=== PATIENT | female | born 1960 | race Caucasian/White ===

== ENCOUNTER → 2016-10-06 | Outpatient (CLI) | payer OTHER ==
--- NOTE | 2016-10-06 10:59 | MA ---
Screening Digital Mammogram With Tomosynthesis Clinical Indications: Routine screening. Personal history of left breast cancer. Technique: Standard digital cephalocaudal and tomosynthesis mediolateral oblique projections are obt ained. An additional cc digital view is performed of the left breast. The digital images were process ed by the [employer] computer aided detection system. Comparison: September 2015, September 2014, September 2013 and September 2012 Breast density: B; There are scattered fibroglandular densities. Findings: CAD was reviewed. No suspicious findings are identified. There are stable post therapeutic changes in the right breast. Impression: Benign mammogram. BI-RADS 2.. Recommendation: Routine screening is recommended in one year. [facility] will send a result letter to the patient. Negative mammography should not preclude additional workup of a clinically suspicious finding. The patient's information is entered into a reminder system with a target due date for her next mammo gram.
== END ==
LOC: FIMAGING 10:12
DX: Z12.31 Encounter for screening mammogram for malignant neoplasm of breast (principal); Z80.3 Family history of malignant neoplasm of breast
CPT/HCPCS: G0202

== ENCOUNTER → 2017-06-16 | Outpatient (CLI) | payer OTHER ==
[~2017-06-16] MED LIST: GADOBUTROL 10 ML VIAL IVP ONE
== END ==
LOC: FIMAGING 18:48
PROVIDERS: ATTEND Family Medicine
DX: R51 Headache (principal); Z85.3 Personal history of malignant neoplasm of breast
CPT/HCPCS: A9585

== ENCOUNTER 2017-07-12 09:48 | Inpatient (IN) | payer OTHER ==
[~2017-07-12 09:48] MED LIST changes: -AVITENE POWDER 1 GM JAR TP ONE; +CEFUROXIME 1,500 MG in NS 50 ML IV ONE; -DEXAMETHASONE 4 MG/ML VIAL ONE; -HYDROmorphONE/DILAUDID 2 MG/ML INJ ONE; -LIDOCAINE 2% 100 MG/5 ML SYR ONE; -ONDANSETRON 4 MG/2 ML VIAL ONE; -PROMETHAZINE HCL 25 MG/ML INJ ONE; -PROPOFOL 200 MG/20 ML VIAL ONE; -PROPOFOL/EMULSION 500 MG/50 ML BOTTLE IV ONE; -REMIFENTANIL HCL 1 MG VIAL ONE; -ROCURONIUM 50 MG/5 ML VIAL ONE; -SCOPOLAMINE HYDROBROMIDE 1 MG/3 DAYS PATCH TD ONE; -epHEDrine SULFATE 10 MG/ML SYR ONE; -fentaNYL 100 MCG/2 ML INJ ONE
[2017-07-12] MEDS ORDERED: LR 1,000 ML IV ONE (10:14)
[2017-07-12] MEDS ORDERED: LIDOCAINE 1% 2 ML INJ ID PRN (10:14)
[2017-07-12] MEDS ORDERED: LIDOCAINE 1% 2 ML INJ ONE (10:16)
[2017-07-12] MEDS ORDERED: GADOBUTROL 10 ML VIAL IVP ONE (10:24)
[2017-07-12] MEDS ORDERED: BACITRACIN ZINC 14.2 GM OINTTUBE TP ONE (10:56)
[2017-07-12] MEDS ORDERED: THROMBIN (BOVINE) 20,000 UNIT VIAL TP ONE (10:56)
[2017-07-12] MEDS ORDERED: BUPIVACAINE 0.25% 30 ML SDV ONE (10:56)
[2017-07-12] MEDS ORDERED: HYDROGEN PEROXIDE 236 ML BOTTLE TP ONE (10:57)
[2017-07-12] MEDS ORDERED: GENTAMICIN SULFATE 80 MG/2 ML VIAL ONE (10:57)
[2017-07-12] MEDS ORDERED: AVITENE POWDER 1 GM JAR TP ONE (10:57)
[2017-07-12] MEDS ORDERED: POVIDONE-IODINE 30 GM OINTTUBE TP ONE (10:57)
--- NOTE | 2017-07-12 12:24 | PDHPUP ---
History & Physical Update H&P update statement: This history and physical update is based on an assessment of the patient which was completed after admission or registration (within 24 hours), but prior to the surgery/procedure. H&P update: H&P reviewed & patient examined, no change in patient's condition since H&P completed
[2017-07-12] MEDS ORDERED: HYDROmorphONE/DILAUDID 1 MG/ML INJ IVP PRN (14:05)
[2017-07-12] MEDS ORDERED: HYDROCODONE/APAP 5/325 TAB PO PRN (14:05)
[2017-07-12] MEDS ORDERED: ONDANSETRON 4 MG/2 ML VIAL IVP PRN ×2 (14:05→15:13)
[2017-07-12] MEDS ORDERED: PROMETHAZINE HCL 25 MG/ML INJ IVP PRN ×2 (14:05→15:13)
[2017-07-12] MEDS ORDERED: OXYCODONE/APAP 5/325 TAB PO PRN (14:05)
[2017-07-12] MEDS ORDERED: fentaNYL 100 MCG/2 ML INJ IVP PRN (14:05)
[2017-07-12] MEDS ORDERED: NALOXONE HCL 0.4 MG/ML INJ IVP PRN (14:05)
[2017-07-12] MEDS ORDERED: DEXAMETHASONE 4 MG/ML VIAL IVP PRN (14:05)
[2017-07-12] MEDS ORDERED: MEPERIDINE 25 MG/ML SYR IVP PRN (14:05)
[2017-07-12] MEDS ORDERED: ACETAMINOPHEN 500 MG TAB PO PRN (14:05)
--- NOTE | 2017-07-12 14:07 | POSTANESTH ---
Post Anesthetic Evaluation Cardiovascular Status: Normal, Stable, Similar to Pre-Op Cond Respiratory Status: Normal, Stable, Similar to Pre-op Cond. Level of Consciousness/Mental Status: Can Participate in Eval, Mildly Sleepy, Arousable Pain Control: Adequate, Prn Tx Ordered Nausea/Vomiting Control: Inadeq, Add Tx Reqired Complications Possibly Related to Anesthesia: None Noted
[2017-07-12] MEDS ORDERED: MAGNESIUM HYDROXIDE 30 ML UDCUP PO PRN (15:13)
[2017-07-12] MEDS ORDERED: LACTULOSE 20 GM/30 ML UDCUP PO PRN (15:13)
[2017-07-12] MEDS ORDERED: niCARdipine/NACL 200 ML IV PRN (15:13)
[2017-07-12] MEDS ORDERED: BISACODYL 10 MG SUPP PR PRN (15:13)
[2017-07-12] MEDS ORDERED: POLYETHYLENE GLYCOL 3350 17 GM PKT PO PRN (15:13)
[2017-07-12] MEDS ORDERED: oxyCODONE IR 5 MG TAB PO PRN (15:17)
--- NOTE | 2017-07-12 15:21 | POSTOPPROG ---
Post Op Note Date of Operation: 07/12/17 Surgeon: Elba Turner Air Brake Mechanic: Krissy Parada PA-C Anesthesia: GET(General Endotracheal) Pre-op Diagnosis: Meningioma Post-op Diagnosis: Meningioma Procedure: Left craniotomy for resection of brain mass Inf/Abcess present in the surg proc area at time of surgery?: No Depth: Deep Incisional (Fascial) EBL: 50-100 Drains: Keith Castelan Specimen(s): Left parietal brain mass sent to pathology Plan Plan: 56 yo female s/p left parietal craniotomy for resection of meningioma - neuro checks - pain control - BYRON drain subgaleal - MRI brain in am - PT/OT - Keppra x 7 days - Maintain SBP < 140 Exam Awake. Alert. PERRL Speech fluent Muscle strength full at 5/5 Incision with dressing
--- NOTE | 2017-07-12 15:21 | POSTOPPROG ---
Post Op Note Date of Operation: 07/12/17 Surgeon: Elba Turner School Bus Driver/Mechanic: Krissy Parada PA-C Anesthesia: GET(General Endotracheal) Pre-op Diagnosis: Meningioma Post-op Diagnosis: Meningioma Procedure: Left craniotomy for resection of brain mass Inf/Abcess present in the surg proc area at time of surgery?: No Depth: Deep Incisional (Fascial) EBL: 50-100 Drains: Keith Castelan Specimen(s): Left parietal brain mass sent to pathology Plan Plan: 56 yo female s/p left parietal craniotomy for resection of meningioma - neuro checks - pain control - BYRON drain subgaleal - MRI brain in am - PT/OT - Keppra x 7 days - Maintain SBP < 140 Exam Awake. Alert. PERRL Speech fluent Muscle strength full at 5/5 Incision with dressing
[2017-07-12] MEDS ORDERED: SCOPOLAMINE HYDROBROMIDE 1 MG/3 DAYS PATCH TD ONE (15:45)
--- NOTE | 2017-07-12 17:30 | GOP ---
[f rep st] OPERATIVE REPORT DATE OF OPERATION: SURGEON: Elba Turner DO NEUROSURGEON: Elba Turner D.O. PACKING AND WRAPPING SUPERVISOR: JAGJIT Cornejo. PREOPERATIVE DIAGNOSIS: Left parietal meningeal lesion. POSTOPERATIVE DIAGNOSIS: Grade 1 meningioma. PROCEDURE PERFORMED: Left stereotactic parietal craniotomy resection of meningioma. FINDINGS: SPECIMENS: To Pathology. Prelim path is grade 1 meningioma. ESTIMATED BLOOD LOSS: 50 mL. INDICATIONS: This is a 56-year-old female with a history of breast cancer who was found to have a le ft parietal meningeal lesion appearing to be meningioma. She elected to move forward with craniotomy and removal. DESCRIPTION OF PROCEDURE: She was identified, consented. Sites were marked. Brought to the operating room, anesthetized under general endotracheal tube anesthesia. Head was placed in a Govea head ho lder. 80 pounds of pressure. The stereotactic arm was affixed, and she was registered to 1.8 mm of ac curacy. This was verified. The preoperatively planned incision was marked in a linear fashion in the left parietal region. Her hair was clipped with the OR clippers. She was prepped and draped in the [facility] sterile fashion. Incision was anesthetized with 0.5% Marcaine with epinephrine. Incision was made with a 10 blade. Hemostasis was obtained with bipolar cautery and Rashel clips. The periosteal elevator was used to elevate the periosteum. Cerebellar retractors brought in. Stereotacti ekke we marked the craniotomy flap to surround the lesion and based upon the preoperative plan and u sed 14 mm bur holes superiorly and inferiorly. This was connected with a B1 with footplate. The denise hole edges were waxed. We then used the wire pass to create holes in the cranium for dural tack-up st itches. Dural tack-up stitches were created circumferentially with 4-0 Nurolon. We then used the stereotaxis to identify the margins of the dural tail and the dura was tented up wit h a 4-0 Nurolon, opened with a 15 blade, and this was extended with a Beckie under the 15 blade unti l we were circumferentially around the lesion. As we began to lift the meninges up, the tumor came ou t in a single piece with a couple of small feeders on the deep side which were coagulated and cut. Th ere was no disruption of the brain tissue. We then stereotactically verified that we had completely r esected the entire enhancing dural tail. We then copiously irrigated with gentamicin-infused saline. Hemostasis on the brain was obtained with Gelfoam and Avitene, and then we gently laid a single layer of Surgicel across this. We used Synthes sewable dural replacement and 4-0 Nurolon to replace the du ra that was resected and sewn watertight. We then copiously irrigated with gentamicin-infused saline, replaced the bone flap with Synthes titan ium plates and 4 mm screws. We then copiously irrigated again with gentamicin-infused saline, trocar to drain out superiorly and posteriorly placed in the subgaleal space. Closed the temporalis fascia w ith 2-0 Vicryl pop-offs. The galea was closed with 2-0 Vicryl pop-offs. The skin was closed with stap les. The drain was sutured and with a 2-0 Vicryl pop-off placed to bulb suction. The incision was michelle ssed with bacitracin and Telfa. The patient was removed from the Govea head esthetician and all neuro m onitoring including motor and sensories were stable throughout the entire case. There were no complic ations. FLUIDS: 2 L crystalloid. URINE OUTPUT: 70 mL. DRAINS: 1 BYRON in the subgaleal space to bulb suction. COMPLICATIONS: None. /[id number]/MODL
--- NOTE | 2017-07-12 17:30 | GOP ---
[f rep st] OPERATIVE REPORT DATE OF OPERATION: SURGEON: Elba Turner DO NEUROSURGEON: Elba Turner D.O. METAL BENDING MACHINE OPERATOR: JAGJIT Cornejo. PREOPERATIVE DIAGNOSIS: Left parietal meningeal lesion. POSTOPERATIVE DIAGNOSIS: Grade 1 meningioma. PROCEDURE PERFORMED: Left stereotactic parietal craniotomy resection of meningioma. FINDINGS: SPECIMENS: To Pathology. Prelim path is grade 1 meningioma. ESTIMATED BLOOD LOSS: 50 mL. INDICATIONS: This is a 56-year-old female with a history of breast cancer who was found to have a le ft parietal meningeal lesion appearing to be meningioma. She elected to move forward with craniotomy and removal. DESCRIPTION OF PROCEDURE: She was identified, consented. Sites were marked. Brought to the operating room, anesthetized under general endotracheal tube anesthesia. Head was placed in a Govea head ho lder. 80 pounds of pressure. The stereotactic arm was affixed, and she was registered to 1.8 mm of ac curacy. This was verified. The preoperatively planned incision was marked in a linear fashion in the left parietal region. Her hair was clipped with the OR clippers. She was prepped and draped in the [facility] sterile fashion. Incision was anesthetized with 0.5% Marcaine with epinephrine. Incision was made with a 10 blade. Hemostasis was obtained with bipolar cautery and Rashel clips. The periosteal elevator was used to elevate the periosteum. Cerebellar retractors brought in. Stereotacti keke we marked the craniotomy flap to surround the lesion and based upon the preoperative plan and u sed 14 mm bur holes superiorly and inferiorly. This was connected with a B1 with footplate. The denise hole edges were waxed. We then used the wire pass to create holes in the cranium for dural tack-up st itches. Dural tack-up stitches were created circumferentially with 4-0 Nurolon. We then used the stereotaxis to identify the margins of the dural tail and the dura was tented up wit h a 4-0 Nurolon, opened with a 15 blade, and this was extended with a Beckie under the 15 blade unti l we were circumferentially around the lesion. As we began to lift the meninges up, the tumor came ou t in a single piece with a couple of small feeders on the deep side which were coagulated and cut. Th ere was no disruption of the brain tissue. We then stereotactically verified that we had completely r esected the entire enhancing dural tail. We then copiously irrigated with gentamicin-infused saline. Hemostasis on the brain was obtained with Gelfoam and Avitene, and then we gently laid a single layer of Surgicel across this. We used Synthes sewable dural replacement and 4-0 Nurolon to replace the du ra that was resected and sewn watertight. We then copiously irrigated with gentamicin-infused saline, replaced the bone flap with Synthes titan ium plates and 4 mm screws. We then copiously irrigated again with gentamicin-infused saline, trocar to drain out superiorly and posteriorly placed in the subgaleal space. Closed the temporalis fascia w ith 2-0 Vicryl pop-offs. The galea was closed with 2-0 Vicryl pop-offs. The skin was closed with stap les. The drain was sutured and with a 2-0 Vicryl pop-off placed to bulb suction. The incision was michelle ssed with bacitracin and Telfa. The patient was removed from the Govea head grease maker and all neuro m onitoring including motor and sensories were stable throughout the entire case. There were no complic ations. FLUIDS: 2 L crystalloid. URINE OUTPUT: 70 mL. DRAINS: 1 BYRON in the subgaleal space to bulb suction. COMPLICATIONS: None. /[id number]/MODL
--- NOTE | 2017-07-12 17:30 | GOP ---
[f rep st] OPERATIVE REPORT DATE OF OPERATION: SURGEON: Elba Turner DO NEUROSURGEON: Elba Turner D.O. OFFICE SPECIALIST: JAGJIT Cornejo. PREOPERATIVE DIAGNOSIS: Left parietal meningeal lesion. POSTOPERATIVE DIAGNOSIS: Grade 1 meningioma. PROCEDURE PERFORMED: Left stereotactic parietal craniotomy resection of meningioma. FINDINGS: SPECIMENS: To Pathology. Prelim path is grade 1 meningioma. ESTIMATED BLOOD LOSS: 50 mL. INDICATIONS: This is a 56-year-old female with a history of breast cancer who was found to have a le ft parietal meningeal lesion appearing to be meningioma. She elected to move forward with craniotomy and removal. DESCRIPTION OF PROCEDURE: She was identified, consented. Sites were marked. Brought to the operating room, anesthetized under general endotracheal tube anesthesia. Head was placed in a Govea head ho lder. 80 pounds of pressure. The stereotactic arm was affixed, and she was registered to 1.8 mm of ac curacy. This was verified. The preoperatively planned incision was marked in a linear fashion in the left parietal region. Her hair was clipped with the OR clippers. She was prepped and draped in the [facility] sterile fashion. Incision was anesthetized with 0.5% Marcaine with epinephrine. Incision was made with a 10 blade. Hemostasis was obtained with bipolar cautery and Rashel clips. The periosteal elevator was used to elevate the periosteum. Cerebellar retractors brought in. Stereotacti keke we marked the craniotomy flap to surround the lesion and based upon the preoperative plan and u sed 14 mm bur holes superiorly and inferiorly. This was connected with a B1 with footplate. The denise hole edges were waxed. We then used the wire pass to create holes in the cranium for dural tack-up st itches. Dural tack-up stitches were created circumferentially with 4-0 Nurolon. We then used the stereotaxis to identify the margins of the dural tail and the dura was tented up wit h a 4-0 Nurolon, opened with a 15 blade, and this was extended with a Beckie under the 15 blade unti l we were circumferentially around the lesion. As we began to lift the meninges up, the tumor came ou t in a single piece with a couple of small feeders on the deep side which were coagulated and cut. Th ere was no disruption of the brain tissue. We then stereotactically verified that we had completely r esected the entire enhancing dural tail. We then copiously irrigated with gentamicin-infused saline. Hemostasis on the brain was obtained with Gelfoam and Avitene, and then we gently laid a single layer of Surgicel across this. We used Synthes sewable dural replacement and 4-0 Nurolon to replace the du ra that was resected and sewn watertight. We then copiously irrigated with gentamicin-infused saline, replaced the bone flap with Synthes titan ium plates and 4 mm screws. We then copiously irrigated again with gentamicin-infused saline, trocar to drain out superiorly and posteriorly placed in the subgaleal space. Closed the temporalis fascia w ith 2-0 Vicryl pop-offs. The galea was closed with 2-0 Vicryl pop-offs. The skin was closed with stap les. The drain was sutured and with a 2-0 Vicryl pop-off placed to bulb suction. The incision was michelle ssed with bacitracin and Telfa. The patient was removed from the Govea correction officer head and all neuro m onitoring including motor and sensories were stable throughout the entire case. There were no complic ations. FLUIDS: 2 L crystalloid. URINE OUTPUT: 70 mL. DRAINS: 1 BYRON in the subgaleal space to bulb suction. COMPLICATIONS: None. /[id number]/MODL
[2017-07-12] MEDS: NS W/ 20 KCl/L 1,000 ML IV SCH (18:06)
[2017-07-12] MEDS: METOPROLOL TARTRATE 25 MG TAB PO SCH (19:41)
[2017-07-12] MEDS: SENNOSIDES/DOCUSATE SODIUM TAB PO SCH (19:41)
[2017-07-12] MEDS: ACETAMINOPHEN 325 MG TAB PO PRN (19:41)
[2017-07-12] MEDS: levETIRAcetam 500 MG TAB PO SCH (19:42)
[2017-07-12] MEDS: CEFUROXIME 1,500 MG in NS 50 ML IV SCH (20:38)
[2017-07-12] MEDS: HYDROCODONE/APAP 10/325 TAB PO PRN (22:15)
[2017-07-13] MEDS: NS W/ 20 KCl/L 1,000 ML IV SCH (03:10)
[2017-07-13] MEDS: ACETAMINOPHEN 325 MG TAB PO PRN ×2 (04:45→17:10)
[2017-07-13] MEDS: HYDROCODONE/APAP 10/325 TAB PO PRN (04:45)
[2017-07-13] MEDS: CEFUROXIME 1,500 MG in NS 50 ML IV SCH (04:46)
--- NOTE | 2017-07-13 08:11 | NEUSURGPN ---
Assessment/Plan: 56 yo female s/p left parietal craniotomy for resection of meningioma - POD#1 - neuro checks - pain control - BYRON drain subgaleal - continue - MRI brain w/wo pending this AM - PT/OT - Keppra x 7 days - Maintain SBP < 140 - Likely transfer to floor later today if doing well - Pt seen and d/w Dr Turner - Call NS with any issues Subjective: Pt resting in bedside chair, states she feels sleepy. Pain well managed. Eating breakfast. Objective: AAOx3 NAD VSS Face symmetric, no droop CN II-XII grossly intact Incision dressed cdi Motor 5/5 BUE/BLE +LT Urinary Catheter in Place: No - Physician Discussed Patient with : Yue Patient Seen by : Yue Neurosurgery Physical Exam - Vitals, I&O, Labs I and O 07/12/17 07/13/17 07/14/17 05:59 05:59 05:59 Intake Total 3970 Output Total 1810 Balance 2160 Weight 74.843 kg Intake: Oral (ml) 600 IV Intake (ml) 2200 IV Infused (ml) 1170 NS W/ 20 KCl/L 1,000 ml @ 1170 100 mls/hr IV CONT MART Rx#:[id number] Output: Urine (ml) 1550 Catheter 1550 Estimated Blood Loss (ml) 70 Emesis (ml) 70 BYRON Drain Output (ml) 120 #1 Left Head 120 Other: Intake Quantity Yes Sufficient Vital Signs Temp Pulse Resp BP Pulse Ox 36.7 C 58 L 10 L 96/60 L 100 07/13/17 03:00 07/13/17 06:00 07/13/17 06:00 07/13/17 06:00 07/13/17 06:00 ICD10 Worksheet Patient Problems: Problems Problem Status Onset Meningioma Acute - ICD10 Problem Qualifiers (1) Meningioma
[2017-07-13] MEDS ORDERED: GADOBUTROL 10 ML VIAL IVP ONE (08:42)
[2017-07-13] MEDS: MULTIVITAMINS 1 EACH TAB PO SCH (09:44)
[2017-07-13] MEDS: levETIRAcetam 500 MG TAB PO SCH ×2 (09:44→20:09)
[2017-07-13] MEDS: SENNOSIDES/DOCUSATE SODIUM TAB PO SCH ×2 (09:44→20:10)
--- NOTE | 2017-07-13 11:46 | ASMTCMCOM ---
CM Note CM Note Notes: Chart reviewed. No evaluations in reports as of yet. Medically stable for transfer to floor. Needs to be determined. CM to follow. Date Signed: 07/13/2017 11:45 AM Electronically Signed By:Marisas Goldberg RN
--- NOTE | 2017-07-13 11:46 | ASMTCMCOM ---
CM Note CM Note Notes: Chart reviewed. No evaluations in reports as of yet. Medically stable for transfer to floor. Needs to be determined. CM to follow. Date Signed: 07/13/2017 11:45 AM Electronically Signed By:Marissa Goldberg RN
[2017-07-13] MEDS: HYDROCODONE/APAP 5/325 TAB PO PRN ×2 (12:30→20:09)
[2017-07-13] MEDS: METOPROLOL TARTRATE 25 MG TAB PO SCH (20:10)
[2017-07-14] MEDS: HYDROCODONE/APAP 5/325 TAB PO PRN ×5 (04:19→23:58)
[2017-07-14] MEDS: levETIRAcetam 500 MG TAB PO SCH ×2 (08:53→19:45)
[2017-07-14] MEDS: MULTIVITAMINS 1 EACH TAB PO SCH (08:53)
[2017-07-14] MEDS: SENNOSIDES/DOCUSATE SODIUM TAB PO SCH ×2 (08:53→19:41)
--- NOTE | 2017-07-14 08:58 | NEUSURGPN ---
Assessment/Plan: 56 yo female s/p left parietal craniotomy for resection of meningioma - POD#2 - neuro checks - pain control - BYRON drain subgaleal - continue, may d/c later today - MRI brain w/wo demonstrates small blood in resection area and small left frontal lobe and lacunar infarct posterior to the surgical cavity - Continue Keppra x 7 days - Maintain SBP < 140 - Pt d/w Dr Turner - Call NS with any issues or changes -Dispo planning for the next 1-2 days Subjective: Headache. Denies any new weakness, nausea, vomiting dizzness Objective: NAD A&Ox3 MAEx4 55/5 and equal in BUE and BLE. Incision c/d/i - Physician Discussed Patient with : Yue Neurosurgery Physical Exam - Vitals, I&O, Labs I and O 07/13/17 07/14/17 07/15/17 05:59 05:59 05:59 Intake Total 3970 750 Output Total 1810 690 Balance 2160 60 Weight 74.843 kg Intake: Oral (ml) 600 750 IV Intake (ml) 2200 IV Infused (ml) 1170 NS W/ 20 KCl/L 1,000 ml @ 1170 100 mls/hr IV CONT MART Rx#:[id number] Output: Urine (ml) 1550 500 Catheter 1550 Toilet 500 Estimated Blood Loss (ml) 70 Emesis (ml) 70 BYRON Drain Output (ml) 120 190 #1 Left Head 120 190 Other: Intake Quantity Yes Sufficient Number of Voids Toilet 1 Vital Signs Temp Pulse Resp BP Pulse Ox 36.7 C 69 12 120/80 96 07/14/17 08:00 07/14/17 08:00 07/14/17 08:00 07/14/17 08:00 07/14/17 08:00 ICD10 Worksheet Patient Problems: Problems Problem Status Onset Meningioma Acute
[2017-07-14 11:26] VITALS: RESP 16
--- NOTE | 2017-07-14 14:04 | ASMTCMCOM ---
CM Note CM Note Notes: Anticipate pt will d/c when medically stable. OT rec home, PT rec home vs. outpatient, PLANT PACKER rec outpatient. No CM needs identified at this time. CM available for changes/needs. Date Signed: 07/14/2017 02:03 PM Electronically Signed By:CLAUDIA Schafer
--- NOTE | 2017-07-14 14:04 | ASMTCMCOM ---
CM Note CM Note Notes: Anticipate pt will d/c when medically stable. OT rec home, PT rec home vs. outpatient, OCCUPATIONAL THERAPY ASSISTANT rec outpatient. No CM needs identified at this time. CM available for changes/needs. Date Signed: 07/14/2017 02:03 PM Electronically Signed By:CLAUDIA Schafer
--- NOTE | 2017-07-14 14:04 | ASMTCMCOM ---
CM Note CM Note Notes: Anticipate pt will d/c when medically stable. OT rec home, PT rec home vs. outpatient, SCRAPER TENDER rec outpatient. No CM needs identified at this time. CM available for changes/needs. Date Signed: 07/14/2017 02:03 PM Electronically Signed By:CLAUDIA Schafer
[2017-07-14] MEDS: METOPROLOL TARTRATE 25 MG TAB PO SCH (19:42)
[2017-07-14 23:53] VITALS: O2SAT 94
[2017-07-15] MEDS: HYDROCODONE/APAP 5/325 TAB PO PRN ×2 (05:27→09:27)
--- NOTE | 2017-07-15 06:51 | SOAPPROG ---
SOAP Progress Note Assessment/Plan: 56 yo female s/p left parietal craniotomy for resection of meningioma - POD#3 - neuro checks - pain control - drain out - mild right facial droop, improving - MRI brain w/wo demonstrates small blood in resection area and small left frontal lobe and lacunar infarct posterior to the surgical cavity - Continue Keppra x 7 days - Maintain SBP < 140 - Ok to d/c home today 07/15/17 06:49 Subjective: no new complaints, overall doing well, pain well controlled Objective: Vital Signs Temp Pulse Resp BP Pulse Ox 36.9 C 66 16 130/75 H 94 07/14/17 23:51 07/14/17 23:51 07/14/17 23:51 07/14/17 23:51 07/14/17 23:51 07/14/17 07/15/17 07/16/17 05:59 05:59 04:59 Intake Total 750 Output Total 690 Balance 60 AAOx3, speech clear and fluent, mild right facial palsy, tongue midline, PERRL, EOMI full strength/sensation, no drift dressing c/d/i - Pending Discharge Pending Discharge Within 24 Hours: Yes Pending Discharge Within 48 Hours: Yes Pending Discharge Date: 07/16/17 Pending Discharge Time: 11:00 ICD10 Worksheet Patient Problems: Problems Problem Status Onset Meningioma Acute
[2017-07-15 08:20] VITALS: BP 134/83; PULSE 72; TEMP 97.8
[2017-07-15] MEDS ORDERED: ENOXAPARIN 40 MG/0.4 ML SYR SC SCH (09:00)
[2017-07-15] MEDS: MULTIVITAMINS 1 EACH TAB PO SCH (09:13)
[2017-07-15] MEDS: levETIRAcetam 500 MG TAB PO SCH (09:15)
[2017-07-15] MEDS: SENNOSIDES/DOCUSATE SODIUM TAB PO SCH (10:02)
== END 2017-07-15 11:29 | disposition home or self-care (01) | DRG 26 ==
LOC: F3N 09:48 → F3E 09:50 → F2N 16:48 → F3N 07-13 13:19
PROVIDERS: ADMIT Neurological Surgery; ATTEND Neurological Surgery
DX: D32.0 Benign neoplasm of cerebral meninges (principal); I97.821 Postprocedural cerebrovascular infarction following other surgery; R29.810 Facial weakness; R00.2 Palpitations; Z85.3 Personal history of malignant neoplasm of breast
CPT/HCPCS: 92523-GN; 97112-GP; 97116-GP; 97161-GP; 97165-GO; 97530-GO; A9585; C1713; J0171; J0697; J1650; J2405

== ENCOUNTER → 2017-07-12 | Outpatient (CLI) | payer OTHER ==
[~2017-07-12] MED LIST changes: +AVITENE POWDER 1 GM JAR TP ONE; +DEXAMETHASONE 4 MG/ML VIAL ONE; -GADOBUTROL 10 ML VIAL IVP ONE; +HYDROmorphONE/DILAUDID 2 MG/ML INJ ONE; +LIDOCAINE 2% 100 MG/5 ML SYR ONE; +ONDANSETRON 4 MG/2 ML VIAL ONE; +PROMETHAZINE HCL 25 MG/ML INJ ONE; +PROPOFOL 200 MG/20 ML VIAL ONE; +PROPOFOL/EMULSION 500 MG/50 ML BOTTLE IV ONE; +REMIFENTANIL HCL 1 MG VIAL ONE; +ROCURONIUM 50 MG/5 ML VIAL ONE; +SCOPOLAMINE HYDROBROMIDE 1 MG/3 DAYS PATCH TD ONE; +epHEDrine SULFATE 10 MG/ML SYR ONE; +fentaNYL 100 MCG/2 ML INJ ONE
--- NOTE | 2017-07-12 11:17 | PDANEPAE ---
ANE History of Present Illness L sided craniotomy for likely meningioma ANE Past Medical History - Cardiovascular History Hx Hypertension: No Hx Arrhythmias: No Hx Chest Pain: No Hx Coronary Artery / Peripheral Vascular Disease: No Hx CHF / Valvular Disease: No Hx Palpitations: No Cardiovascular History Comment: on betablocker for SVT - Pulmonary History Hx COPD: No Hx Asthma/Reactive Airway Disease: No Hx Recent Upper Respiratory Infection: No Hx Oxygen in Use at Home: No Hx Sleep Apnea: No Pulmonary History Comment: pulmonary function test - WNL 06-27 - Neurologic History Hx Cerebrovascular Accident: No Hx Seizures: No Hx Dementia: No Neurologic History Comment: dull H/A occipital, bilat parietal meningioma. " pain on R side". denies diplopia, weakness.c/o "TIRED" - Endocrine History Hx Diabetes: No Endocrine History Comment: goiter-under observation Dr Dominick Jin - Renal History Hx Renal Disorders: No - Liver History Hx Hepatic Disorders: No - Neurological & Psychiatric Hx Hx Neurological and Psychiatric Disorders: Yes Neurological / Psychiatric History Comment: L side of neck-stiffness past month of - Cancer History Hx Cancer: Yes Cancer History Comment: L breast CA- tx w/surgery,radiation and chemo - Congenital Disorder History Hx Congenital Disorders: No - GI History Hx Gastrointestinal Disorders: No - Other Health History Other Health History: none - Chronic Pain History Chronic Pain: No - Surgical History Prior Surgeries: L breast lumpectomy. open ivette -1987 ANE Review of Systems Review of systems is: negative Review of Systems: - Exercise capacity Exercise capacity: >=4 METS ANE Patient History - Allergies Allergies/Adverse Reactions: erythromycin base [Erythromycin Base] Allergy (Verified 07/05/17 10:31) GI midazolam [From Versed] Allergy (Verified 07/05/17 10:31) Vomiting - Home Medications Home medications: home medication list seen and reviewed Home Medications: Calcium Citrate W/Vit D [Citracal + D (OTC)] 315 mg PO DAILY 07/05/17 [Last Taken 07/05/17] Cholecalciferol Vit D3 [Vitamin D3 (*)] 1,000 units PO DAILY 07/05/17 [Last Taken 07/05/17] Metoprolol Tartrate [Lopressor 25 mg (*)] 25 mg PO HS 07/05/17 [Last Taken 07/11] Multivitamins [Multivitamin (*)] 1 each PO DAILY 07/05/17 [Last Taken 07/05/17] - NPO status NPO Status: no food or drink >8 hours - Anes Hx Anes Hx: no prior problems - Smoking Hx Smoking Status: Never smoked - Family Anes Hx Family Anes Hx: none ANE Physical Exam - Airway Neck exam: FROM Mallampati Score: Class 1 Mouth exam: normal dental/mouth exam - Pulmonary Pulmonary: no respiratory distress - Cardiovascular Cardiovascular: regular rate and rhythym - ASA Status ASA Status: II ANE Anesthesia Plan Anesthesia Plan: general endotracheal anesthesia
== END ==
LOC: FIMAGING 10:41
PROVIDERS: ATTEND Neurological Surgery
PROC: B030YZZ Magnetic Resonance Imaging (MRI) of Brain using Other Contrast (ICD-10-PCS; principal; 2017-07-12)
DX: R51 Headache (principal); R94.02 Abnormal brain scan; G45.9 Transient cerebral ischemic attack, unspecified; Z85.3 Personal history of malignant neoplasm of breast
CPT/HCPCS: J1100; J1170; J2001; J2405; J2550; J2704; J3010

== ENCOUNTER → 2017-10-09 | Outpatient (CLI) | payer OTHER | LOC: FIMAGING 10:25 | PROVIDERS: ATTEND Internal Medicine Hematology & Oncology | DX: Z12.31 Encounter for screening mammogram for malignant neoplasm of breast (principal); Z85.3 Personal history of malignant neoplasm of breast ==

== ENCOUNTER → 2018-01-19 | Outpatient (CLI) | payer OTHER ==
[~2018-01-19] MED LIST changes: -CEFUROXIME 1,500 MG in NS 50 ML IV ONE; +GADOBUTROL 10 ML VIAL IVP ONE
== END ==
LOC: FIMAGING 11:33
PROVIDERS: ATTEND Physician Assistant Surgical
DX: D32.9 Benign neoplasm of meninges, unspecified (principal)
CPT/HCPCS: A9585

== ENCOUNTER → 2018-07-12 | Outpatient (CLI) | payer OTHER | LOC: FIMAGING 11:30 | PROVIDERS: ATTEND Physician Assistant Surgical | DX: Z09 Encounter for follow-up examination after completed treatment for conditions other than malignant neoplasm (principal); D32.9 Benign neoplasm of meninges, unspecified ==

== ENCOUNTER → 2018-07-12 | Outpatient (CLI) | payer OTHER | LOC: FIMAGING 11:33 | PROVIDERS: ATTEND Nurse Practitioner | DX: R92.8 Other abnormal and inconclusive findings on diagnostic imaging of breast (principal); Z85.3 Personal history of malignant neoplasm of breast | CPT/HCPCS: A9585 ==